=== PATIENT | male | born 1955 | race Caucasian/White ===

== ENCOUNTER 2023-02-14 20:52 | Emergency (ER) | payer SELFPAY ==
[2023-02-14] MEDS ORDERED: HYDROCODONE/APAP 10/325 TAB ONE (23:57)
[2023-02-14] MEDS ORDERED: IBUPROFEN 400 MG TAB ONE (23:57)
--- NOTE | 2023-02-15 00:02 | EDPHYS ---
Physician Documentation [facility] Name: Jakub Arndt Age: 67 yrs Sex: Male : 1955 Arrival Date: 02/14/2023 Time: 20:52 Bed 11 Private MD: ED Physician Girish Love HPI: 02/14 22:30 This 67 yrs old Male presents to ER via Ambulatory with complaints of Shoulder Injury. cp 22:30 The patient or guardian complains of an injury, pain, that is acute. top of right cp shoulder. Context: resulted from a fall, while walking, The patient reports no decreased range of motion. The patient reports no obvious deformity. Onset: The symptoms/episode began/occurred today. Modifying factors: The symptoms are aggravated by movement. Associated signs and symptoms: The patient has no apparent associated signs or symptoms. Severity of symptoms: in the emergency department the symptoms are unchanged, despite home interventions. 22:30 Patient reports history of rotator cuff repair of right shoulder. cp Historical: - Allergies: 22:17 No Known Allergies; pf1 - PMHx: 22:17 chronic back pain; gerd; Anxiety; hiatal hernia; sciatica; pf1 - PSHx: 22:17 right shoulder surgery; pf1 - Immunization history:: Adult Immunizations up to date, Client reports having NOT received the Covid vaccine. Last tetanus immunization: < 5 years ago Flu vaccine is not up to date. - Social history:: Smoking status: Patient reports use of chewing tobacco. Patient/guardian denies using alcohol, street drugs. ROS: 22:35 Constitutional: Negative for fever. cp 22:35 Eyes: Negative for injury, pain, redness, and discharge. cp 22:35 Neck: Negative for pain with movement, pain at rest, tenderness, bony tenderness. 22:35 Cardiovascular: Negative for chest pain. 22:35 Respiratory: Negative for cough, shortness of breath, wheezing. 22:35 Abdomen/GI: Negative for abdominal pain, nausea, vomiting, and diarrhea. 22:35 Back: Negative for pain at rest, pain with movement, radiated pain. 22:35 MS/extremity: Positive for pain, of the top of right shoulder, Negative for decreased range of motion, deformity. 22:35 All other systems are negative. Exam: 22:40 Constitutional: The patient appears in no acute distress, alert, awake, cp non-diaphoretic, non-toxic, well developed, well nourished. 22:40 Head/Face: Normocephalic, atraumatic. cp 22:40 Neck: C-spine: vertebral tenderness, is not appreciated, crepitus, is not appreciated, ROM/movement: is normal, is supple, without pain, no range of motions limitations, no nuchal rigidity. 22:40 Chest/axilla: Inspection: normal. 22:40 Cardiovascular: Rate: normal, Rhythm: regular. 22:40 Respiratory: the patient does not display signs of respiratory distress, Respirations: normal, no use of accessory muscles, no retractions, labored breathing, is not present, Breath sounds: are clear throughout, no decreased breath sounds, no stridor, no wheezing. 22:40 Abdomen/GI: Exam negative for discomfort, distension, guarding, Inspection: abdomen appears normal. 22:40 Back: pain, is absent, ROM is normal, vertebral tenderness, is not appreciated. 22:40 Musculoskeletal/extremity: Extremities: grossly normal except: noted in the right shoulder: pain, tenderness to palpation top of right shoulder, ROM: limited passive range of motion due to pain, in the right shoulder, Pulses: noted to be 2+ in the right radial artery, the right hand and right arm Sensation intact. Vital Signs: 22:11 BP 148 / 95; Pulse 70; Resp 18; Temp 97.5; Pulse Ox 100% on R/A; Weight 81.65 kg; pf1 Height 5 ft. 6 in. ; Pain 8/10; 22:11 Body Mass Index 29.05 (81.65 kg, 167.64 cm) pf1 22:11 Pain Scale: Adult pf1 MDM: 22:19 Patient medically screened. cp 22:30 Differential diagnosis: Anterior dislocation with fracture, Anterior dislocation cp without fracture, Posterior dislocation with fracture, Posterior dislocation without fracture, tendonitis, fracture. 23:55 Independent interpretation of the following test(s) in the Emergency Department X-Ray: My interpretation is images of right shoulder negative for fracture. 02/15 00:00 Data reviewed: vital signs, nurses notes, radiologic studies, plain films. cp 00:00 I considered the following discharge prescriptions or medication management in the emergency department Medications were administered in the Emergency Department. See MAR. Counseling: I had a detailed discussion with the patient and/or guardian regarding: the historical points, exam findings, and any diagnostic results supporting the discharge/admit diagnosis, radiology results, the need for outpatient follow up, a orthopedic surgeon, to return to the emergency department if symptoms worsen or persist or if there are any questions or concerns that arise at home. Response to treatment: the patient's symptoms have mildly improved after treatment, and as a result, I will discharge patient. 02/14 22:24 Order name: XRAY Shoulder RIGHT 2 view cp 02/14 23:55 Order name: Sling; Complete Time: 00:04 cp Administered Medications: 02/14 23:52 Drug: HYDROcodone-acetaminophen PO 10 mg-325 mg 1 tabs Route: PO; cg 02/15 00:50 Follow up: Response: No adverse reaction; Marked relief of symptoms; Pain is decreased; pf1 RASS: Alert and Calm (0) 02/14 23:52 Drug: Ibuprofen PO 800 mg Route: PO; cg 02/15 00:50 Follow up: Response: No adverse reaction; Marked relief of symptoms; Pain is decreased pf1 Disposition Summary: 02/15/23 00:00 Discharge Ordered Location: Home cp Problem: new cp Symptoms: have improved cp Condition: Stable cp Diagnosis - Pain in right shoulder cp Followup: cp - With: Cuauhtemoc Rhodes MD - When: 2 - 3 days - Reason: Recheck today's complaints Discharge Instructions: - Discharge Summary Sheet cp - Shoulder Pain cp - Shoulder Range of Motion Exercises cp Forms: - Medication Reconciliation Form cp - Thank You Letter cp - Antibiotic Education cp - Prescription Opioid Use cp Prescriptions: - Cyclobenzaprine 10 mg Oral Tablet - take 1 tablet by ORAL route every 8 hours As needed; 30 tablet; Refills: 0, cp Product Selection Permitted - Diclofenac Sodium 75 mg Oral Tablet Sustained Release - take 1 tablet by ORAL route 2 times per day; 30 tablet; Refills: 0, Product cp Selection Permitted Signatures: Dispatcher [employer] Dayron Dudley PA PA cp Garcia, Cindy RN RN Farida Hameed RN RN pf1
--- NOTE | 2023-02-15 00:02 | ER ---
Nurse's Notes [facility] Name: Jakub Arndt Age: 67 yrs Sex: Male : 1955 Arrival Date: 02/14/2023 Time: 20:52 Bed 11 Private MD: Diagnosis: Pain in right shoulder Presentation: 02/14 22:11 Chief complaint: Patient states: right shoulder pain of 8,onset 5 hours ago, S/P fall. pf1 Patient stated fell when walking backwards to move out of someone's way, tripped and fell onto his right shoulder. Patient denies any LOC or head injury. Coronavirus screen: Vaccine status: Patient reports being unvaccinated. Client denies travel out of the [place] in the last 14 days. At this time, the client does not indicate any symptoms associated with coronavirus-19. Ebola Screen: Patient negative for fever greater than or equal to 101.5 degrees Fahrenheit, and additional compatible Ebola Virus Disease symptoms. Initial Sepsis Screen: Does the patient meet any 2 criteria? No. Patient's initial sepsis screen is negative. Does the patient have a suspected source of infection? No. Patient's initial sepsis screen is negative. Risk Assessment: Do you want to hurt yourself or someone else? Patient reports no desire to harm self or others. 22:11 Method Of Arrival: Ambulatory pf1 22:11 Acuity: YUDELKA 4 pf1 Historical: - Allergies: 22:17 No Known Allergies; pf1 - PMHx: 22:17 chronic back pain; gerd; Anxiety; hiatal hernia; sciatica; pf1 - PSHx: 22:17 right shoulder surgery; pf1 - Immunization history:: Adult Immunizations up to date, Client reports having NOT received the Covid vaccine. Last tetanus immunization: < 5 years ago Flu vaccine is not up to date. - Social history:: Smoking status: Patient reports use of chewing tobacco. Patient/guardian denies using alcohol, street drugs. Screenin:20 [facility] ED Fall Risk Assessment (Adult) History of falling in the last 3 months, pf1 including since admission Yes- single mechanical fall (1 pt) Confusion or Disorientation No (0 pts) Intoxicated or Sedated No (0 pts) Impaired Gait No (0 pts) Mobility Assist Device Used No (0 pt) Altered Elimination No (0 pt) Score/Fall Risk Level 0 - 2 = Low Risk Oriented to surroundings, Maintained a safe environment, Educated pt \T\ family on fall prevention, incl call for assistance when getting out of bed, Assessed \T\ reinforced patient's understanding of fall precautions, Provided non-skid footwear, Hourly rounding (assess needs \T\ fall precautionary measures) done, Used ambulatory aids as needed (educated on \T\ assisted with), Used gait belt as appropriate. 22:20 Abuse screen: Denies threats or abuse. Nutritional screening: No deficits noted. pf1 Tuberculosis screening: No symptoms or risk factors identified. Assessment: 22:20 General: Appears in no apparent distress. uncomfortable, well groomed, well developed, pf1 Behavior is calm, cooperative, appropriate for age, quiet. 22:20 Pain: Complains of pain in right shoulder. Neuro: No deficits noted. Level of pf1 Consciousness is awake, alert, obeys commands, Oriented to person, place, time, situation. Cardiovascular: No deficits noted. Capillary refill < 3 seconds Patient's skin is warm and dry. Respiratory: No deficits noted. Airway is patent Respiratory effort is even, unlabored, Respiratory pattern is regular, symmetrical. GI: No deficits noted. No signs and/or symptoms were reported involving the gastrointestinal system. : No deficits noted. No signs and/or symptoms were reported regarding the genitourinary system. EENT: No deficits noted. No signs and/or symptoms were reported regarding the EENT system. Musculoskeletal: Circulation, motion, and sensation intact. Capillary refill < 3 seconds, Reports pain in right shoulder. Vital Signs: 22:11 BP 148 / 95; Pulse 70; Resp 18; Temp 97.5; Pulse Ox 100% on R/A; Weight 81.65 kg; pf1 Height 5 ft. 6 in. ; Pain 8/10; 22:11 Body Mass Index 29.05 (81.65 kg, 167.64 cm) pf1 22:11 Pain Scale: Adult pf1 ED Course: 22:02 Patient arrived in ED. kj1 22:07 Dayron Fernandez PA is PHCP. cp 22:07 Girish Love MD is Attending Physician. cp 22:17 Triage completed. pf1 22:20 Patient has correct armband on for positive identification. Bed in low position. Call pf1 light in reach. 22:20 Arm band placed on right wrist. pf1 23:02 XRAY Shoulder RIGHT 2 view In Process Unspecified. EDMS 02/15 00:00 Cuauhtemoc Rhodes MD is Referral Physician. cp 00:00 Sling \T\ swathe to right arm. pf1 00:15 Patient did not have IV access during this emergency room visit. pf1 00:15 No provider procedures requiring assistance completed. pf1 Administered Medications: 02/14 23:52 Drug: HYDROcodone-acetaminophen PO 10 mg-325 mg 1 tabs Route: PO; cg 02/15 00:50 Follow up: Response: No adverse reaction; Marked relief of symptoms; Pain is decreased; pf1 RASS: Alert and Calm (0) 02/14 23:52 Drug: Ibuprofen PO 800 mg Route: PO; cg 02/15 00:50 Follow up: Response: No adverse reaction; Marked relief of symptoms; Pain is decreased pf1 Medication: 00:15 VIS not applicable for this client. pf1 Outcome: 00:00 Discharge ordered by MD. cp 00:15 Discharged to home ambulatory. pf1 00:15 Condition: improved 00:15 Discharge instructions given to patient, Instructed on discharge instructions, follow pf1 up and referral plans. Demonstrated understanding of instructions, follow-up care, medications, Prescriptions given X 2. 00:15 Patient left the ED. pf1 Signatures: Dispatcher [employer] EDMI Dayron Fernandez PA PA cp Garcia, Cindy, Disha Espinosa RN kj1 Farida Michel RN RN pf1 Corrections: (The following items were deleted from the chart) 07:51 00:43 Patient left the ED. pf1 pf1
[2023-02-15 01:22] VITALS: BP 148/95; TEMP 97.5; O2SAT 100
--- NOTE | 2023-02-16 18:53 | RAD REPORT ---
EXAM DESCRIPTION: RAD - Shoulder Right 2 View - 02/14/2023 11:00 pm CLINICAL HISTORY: PAIN Shoulder Right 2 View. COMPARISON: None. TECHNIQUE: 2 views of the right shoulder were obtained: AP internal and external rotation radiograph s. FINDINGS: No acute fracture identified. Glenohumeral joint alignment is maintained. No acromioclavic ular joint widening. Mild acromioclavicular osteoarthrosis. Complete obliteration of the subacromial space. Chronic cystic change and irregularity of the humeral head at the greater tuberosity. IMPRESSION: No acute osseous abnormality identified. Findings suggestive of chronic rotator cuff pat hology. Electronically signed by: Alesha Marroquin MD 02/14/2023 11:43 PM CDT Due to temporary technical issues with the PACS/Fluency reporting system, reports are being signed by the in house radiologists without review as a courtesy to insure prompt reporting. The interpreting radiologist is fully responsible for the content of the report.
== END 2023-02-15 00:43 | disposition home or self-care (01) ==
LOC: ER 20:52
DX: M25.511 Pain in right shoulder (principal)
CPT/HCPCS: 99284